=== PATIENT | male | born 1965 | race Caucasian/White ===

== ENCOUNTER 2024-04-02 00:47 | Emergency (ER) | payer MEDICAID ==
[~2024-04-02] VITALS: Ht 170.2 cm; Wt 91.0 kg
[2024-04-02 01:18] VITALS: TEMP 98.1; O2SAT 98
[2024-04-02 01:57] LABS: CHLORIDE 106 mEq/L (98-107); POTASSIUM 3.6 mEq/L (3.5-5.1); SODIUM 138 mEq/L (136-145)
[2024-04-02 01:58] LABS: CARBON DIOXIDE 26 mEq/L (21-32)
[2024-04-02 01:59] LABS: CALCIUM 9.5 mg/dL (8.7-10.4)
[2024-04-02 02:03] LABS: GLUCOSE 146 mg/dL (70-105); UREA NITROGEN BLOOD 11 mg/dL (9-23)
[2024-04-02 02:04] LABS: TROPONIN I HIGH SENSITIVITY 7 ng/L (3.0-53)
[2024-04-02 02:35] LABS: BASOPHILS % 0.3 % (0.0-2.0); EOSINOPHILS % 2.4 % (0.0-5.0); HEMATOCRIT. 47.2 % (42.0-52.0); HEMOGLOBIN. 16.2 g/dL (14.0-18.0); LYMPHOCYTES % 30.9 % (20.0-50.0); MEAN CORPUSCULAR HEMOGLOBIN 30.5 pg (28.0-32.0); MEAN CORPUSCULAR HGB CONC 34.3 g/dL (31.0-37.0); MEAN PLATELET VOLUME 8.7 fl (7.4-10.4); MONOCYTES % 6.7 % (2.0-8.0); NEUTROPHILS % 59.7 % (40.0-76.0); PLATELET 181 x1000/uL (130-400); RED CELL DISTRIBUTION WIDTH 13.5 % (11.6-14.6); WHITE BLOOD COUNT 8.2 x1000/uL (4.5-11.0)
[2024-04-02] MEDS ORDERED: LISINOPRIL 40MG TABLET PO ONE (04:15)
[2024-04-02 04:28] LABS: TROPONIN I HIGH SENSITIVITY 7 ng/L (3.0-53)
[2024-04-02] MEDS ORDERED: LISI40TA13 MT (04:44)
[2024-04-02] MEDS ORDERED: LISI10TA26 MT (04:44)
[2024-04-02 04:51] VITALS: BP 147/84; PULSE 71; RESP 14; O2SAT 100
[2024-04-02] MEDS: LISINOPRIL 20MG TABLET PO NR (04:53)
== END 2024-04-02 05:01 | disposition home or self-care (01) ==
LOC: ER 01:06
DX: I10 Essential (primary) hypertension (principal); Z79.899 Other long term (current) drug therapy
CPT/HCPCS: 36415; 71045; 80048; 84484; 85025; 93005; 99285